=== PATIENT | female | born 1960 | race Hispanic/Latino ===

== ENCOUNTER 2019-01-29 11:59 | Emergency (ER) | payer BC, OTHER ==
[~2019-01-29] VITALS: Ht 160 cm; Wt 71.7 kg
--- OUTSIDE RECORDS SUMMARY | 2019-01-29 12:01 | XMS REPORT ---
Author Author [facility] Address Unknown Phone Unavailable Care Team Providers Care Gun Striper Name Role Phone TEA BOJORQUEZ Unavailable Unavailable Problems This patient has no known problems. Allergies, Adverse Reactions, Alerts This patient has no known allergies or adverse reactions. Medications This patient has no known medications. Encounters Start Date/Time End Date/Time Encounter Type Admission Type Attending [facility] Care Department Encounter ID 2018-06-28 00:00:00 2018-06-28 00:00:00 Outpatient [facility] [id number] 2018-06-12 21:33:33 2018-06-12 21:33:33 Emergency [facility] [id number] 2018-06-12 20:35:03 2018-06-12 20:35:03 [facility] [id number] 2016-09-24 01:37:23 2016-09-24 01:37:23 Emergency [facility] [id number] 2016-09-23 23:14:26 2016-09-23 23:14:26 Emergency [facility] [id number] 2016-09-23 19:48:54 2016-09-23 19:48:54 [facility] [id number] 2016-09-23 06:36:30 2016-09-23 06:36:30 [facility] [id number] Results Test Description Test Time Test Comments Text Results Atomic Results Result Comments POCT-GLUCOSE METER 2017-09-28 10:52:00 POC-GLUCOSE METER (BEAKER) (test mfby=1728) 288 mg/dL 70-110 TESTED AT [address] [address] POCT-GLUCOSE [id number] 06:51:00* Test Item Value Reference Range Comments POC-GLUCOSE METER (BEAKER) (test rphf=2661) 348 mg/dL 70-110 TESTED AT [address] [address] BASIC METABOLIC [id number] 14:31:00* Test Item Value Reference Range Comments SODIUM (BEAKER) (test luvb=202) 141 meq/L 136-145 POTASSIUM (BEAKER) (test bzxy=556) 4.0 meq/L 3.5-5.1 CHLORIDE (BEAKER) (test rdas=814) 105 meq/L 98-107 CO2 (BEAKER) (test okfm=575) 25 meq/L 22-29 BLOOD UREA NITROGEN (BEAKER) (test nccc=998) 23 mg/dL 7-21 CREATININE (BEAKER) (test pfpl=437) 1.04 mg/dL 0.57-1.25 GLUCOSE RANDOM (BEAKER) (test mgjc=122) 125 mg/dL 70-105 CALCIUM (BEAKER) (test ndug=696) 9.4 mg/dL 8.4-10.2 EGFR (BEAKER) (test bmdx=1242) 55 mL/min/1.73 sq m ESTIMATED GFR IS NOT ACCURATE CREATININE CLEARANCE IN PREDICTING GLOMERULAR FILTRATION RATE. ESTIMATED GFR IS NOT APPLICABLE FOR DIALYSIS PATIENTS. CBC W/PLT COUNT & AUTO [id number] 14:21:00* Test Item Value Reference Range Comments WHITE BLOOD CELL COUNT (BEAKER) (test mifm=988) 10.8 K/ L 3.5-10.5 RED BLOOD CELL COUNT (BEAKER) (test aspi=950) 3.99 M/ L 3.93-5.22 HEMOGLOBIN (BEAKER) (test xgol=435) 10.1 GM/DL 11.2-15.7 HEMATOCRIT (BEAKER) (test eedi=921) 33.1 % 34.1-44.9 MEAN CORPUSCULAR VOLUME (BEAKER) (test tofy=123) 83.0 fL 79.4-94.8 MEAN CORPUSCULAR HEMOGLOBIN (BEAKER) (test lvql=835) 25.3 pg 25.6-32.2 MEAN CORPUSCULAR HEMOGLOBIN CONC (BEAKER) (test qblj=332) 30.5 GM/DL 32.2-35.5 RED CELL DISTRIBUTION WIDTH (BEAKER) (test krou=344) 21.1 % 11.7-14.4 PLATELET COUNT (BEAKER) (test zqmb=934) 312 K/CU MM 150-450 MEAN PLATELET VOLUME (BEAKER) (test lysr=398) 9.2 fL 9.4-12.3 NUCLEATED RED BLOOD CELLS (BEAKER) (test tdqh=746) 0 /100 WBC 0-0 NEUTROPHILS RELATIVE PERCENT (BEAKER) (test clsy=370) 66 % LYMPHOCYTES RELATIVE PERCENT (BEAKER) (test cfox=875) 25 % MONOCYTES RELATIVE PERCENT (BEAKER) (test ipmo=985) 5 % EOSINOPHILS RELATIVE PERCENT (BEAKER) (test ulsb=682) 3 % BASOPHILS RELATIVE PERCENT (BEAKER) (test mmem=767) 0 % NEUTROPHILS ABSOLUTE COUNT (BEAKER) (test abox=431) 7.10 K/ L 1.56-6.13 LYMPHOCYTES ABSOLUTE COUNT (BEAKER) (test znlr=195) 2.73 K/ L 1.18-3.74 MONOCYTES ABSOLUTE COUNT (BEAKER) (test bvjv=503) 0.57 K/ L 0.24-0.36 EOSINOPHILS ABSOLUTE COUNT (BEAKER) (test zoir=072) 0.29 K/ L 0.04-0.36 BASOPHILS ABSOLUTE COUNT (BEAKER) (test vdqq=691) 0.04 K/ L 0.01-0.08 IMMATURE GRANULOCYTES-RELATIVE PERCENT (BEAKER) (test uwar=1960) 0 % 0-1
--- OUTSIDE RECORDS SUMMARY | 2019-01-29 12:01 | XMS REPORT | Summary of Care ---
Author Author Nelsy Cao, Karoline Stern Unknown Address [facility] Phone Unavailable Care Team Providers Care Dog Food Dough Mixer Name Role Phone SUNNY LYN M.D. Unavailable Unavailable BRITTANY HILL MD Unavailable Unavailable Unavailable Unavailable Functional Status Name Dates Details Functional status health issues are not documented Status: Name Dates Details Cognitive status health issues are not documented Status: Problems Name Dates Details Active medical history not documented Status: Medications Name Dates Details Medications not documented Allergies and Adverse Reactions Name Dates Details Allergy history not documented Status: Procedures Procedure Dates Details Procedures not documented Immunization Name Dates Details Immunizations not documented Social History Name Dates Details Unknown if ever smoked Vital Signs Date Test Result Details No Known Vitals to report Results Date Description Value Details Results not documented Plan of Care Name Dates Details Planned Observations Planned Goals not documented Planned Encounters Appointment; SUNNY LYN M.D. On: 12-Jun-2017 8:30 Interventions Provided Plan* Follow up Discussion/Summary* Clinical cardiac findings reviewed and discussed Instructions Name Dates Details Instructions not documented Encounters Appointment; SUNNY LYN M.D. Encounter Diagnosis: Problem not documented On: 12-Jun-2017 8:30
[2019-01-29] MEDS ORDERED: VANCOMYCIN 1GM/NS 250 ML 250 ML IV ONE (12:30)
[2019-01-29] MEDS ORDERED: ASPIR 8181 MG PO (12:34)
--- NOTE | 2019-01-29 12:47 | NUR ---
EUGENIE MYLES CALLED FOR LABS.
[2019-01-29] MEDS ORDERED: FUROSEMIDE40 MG PO (12:52)
[2019-01-29] MEDS ORDERED: FLUTICASONE PRO16 GM NS (12:52)
[2019-01-29] MEDS ORDERED: PLAVIX75 MG PO (12:52)
[2019-01-29] MEDS ORDERED: CARVEDILOL3.125 MG PO (12:52)
[2019-01-29] MEDS ORDERED: GABAPENTIN100 MG PO (12:52)
[2019-01-29] MEDS ORDERED: BENADRYL25 M1 PO (12:52)
--- NOTE | 2019-01-29 13:04 | Diagnostic Imaging Report ---
Exam: Right foot radiographs-3 views History: Swelling. Comparison: None. Findings: There is a comminuted, mildly displaced, intra-articular fracture of the great toe proximal phalanx. There is an erosion at the base of the great toe distal phalanx. There is osteopenia in the proximal distal phalanges of the great toe. There is surrounding soft tissue edema. There is soft tissue ulceration at the palmar aspect of the great toe. There is a plantar calcaneal spur. There is Achilles enthesopathy. Impression: Comminuted, mildly displaced, intra-articular fracture of the great toe proximal phalanx. Soft tissue edema of the great toe with associated ulcer, osteopenia within the great toe phalanges, and erosion of the great toe distal phalanx, suspicious for superimposed osteomyelitis. Signed by: Dr. Tyrone Laboy MD on 01/29/2019 1:01 PM
--- NOTE | 2019-01-29 13:10 | Diagnostic Imaging Report ---
EXAMINATION: CXR 2 VIEW - HOPD INDICATION: Swollen right toe. COMPARISON: None FINDINGS: TUBES and LINES: None. LUNGS: Lungs are well inflated. Lungs are clear. There is no evidence of pneumonia or pulmonary edema. PLEURA: No pleural effusion or pneumothorax. HEART AND MEDIASTINUM: The cardiomediastinal silhouette is unremarkable. BONES AND SOFT TISSUES: No acute osseous abnormality. UPPER ABDOMEN: No free air under the diaphragm. IMPRESSION: No acute radiographic abnormality. Signed by: Dr. Tyrone Laboy MD on 01/29/2019 1:07 PM
[2019-01-29] MEDS ORDERED: VANCOMYCIN 1GM/NS 250 ML 250 ML ONE (13:28)
--- NOTE | 2019-01-29 13:41 | NUR ---
called [facility] for transport
[2019-01-29] MEDS ORDERED: ONDANSETRON HCL INJ 2MG/ML 2ML 2 MG/ML VIAL IV PRN (13:45)
[2019-01-29] MEDS ORDERED: DEXTROSE 50% SYRINGE 50 ML IV PRN (13:45)
[2019-01-29] MEDS ORDERED: SODIUM CHLORIDE FLUSH 10 ML SYR INJ PRN (13:45)
[2019-01-29] MEDS ORDERED: LANTUS 3ML100 UNITS/ (13:55)
[2019-01-29] MEDS ORDERED: LORATADINE10 MG PO (13:55)
[2019-01-29] MEDS ORDERED: SPIRONOLACTONE25 MG PO (13:55)
[2019-01-29] MEDS ORDERED: NOVOLOG100 UNIT/1 (13:55)
[2019-01-29] MEDS ORDERED: GUAIFENESIN-CO118 M1 PO (13:55)
[2019-01-29] MEDS ORDERED: VITAMIN C250 MG PEG (13:55)
--- NOTE | 2019-01-29 14:50 | NUR ---
[facility] extended wait time 30 more mins. pt/fm updated.
--- NOTE | 2019-01-29 15:46 | NUR ---
report to [facility]
--- NOTE | 2019-01-29 16:29 | NUR ---
pt stated she is leaving [facility] when [facility] got here. pt given results for follow up.
[2019-01-29] MEDS ORDERED: INSULIN REGULAR, HUMAN 100 UNIT/1 ML 3ML VIAL SQ SCH (16:30)
[2019-01-29] MEDS ORDERED: CARVEDILOL 3.125 MG TAB PO SCH (17:00)
[2019-01-29] MEDS ORDERED: GABAPENTIN 100 MG CAP PO SCH (17:00)
[2019-01-30] MEDS ORDERED: VANCOMYCIN 750MG/NS 150ML IVPB 150 ML IV SCH
[2019-01-30] MEDS ORDERED: SPIRONOLACTONE 25 MG TAB PO SCH (09:00)
[2019-01-30] MEDS ORDERED: LORATADINE 10 MG TAB PO SCH (09:00)
[2019-01-30] MEDS ORDERED: FLUTICASONE PROPIONATE NASAL SPRAY NS SCH (09:00)
[2019-01-30] MEDS ORDERED: ASPIRIN 81 MG CHEW TAB PO SCH (09:00)
[2019-01-30] MEDS ORDERED: CLOPIDOGREL BISULFATE 75 MG TAB PO SCH (09:00)
== END 2019-01-29 16:35 | disposition left against medical advice (07) ==
LOC: FSED 11:59 → UNDOADMIN 13:38 → ERHOLD 13:38
DX: M79.671 Pain in right foot (principal); L03.115 Cellulitis of right lower limb; D64.9 Anemia, unspecified
CPT/HCPCS: 71046; 80053; 81003; 85025; 87040; 99284; J1817; J2405; J3370